=== PATIENT | male | born 2000 | race Caucasian/White ===

== ENCOUNTER 2019-06-26 15:00 | Emergency (ER) | payer OTHER ==
[2019-06-26 15:07] VITALS: BP 155/82; PULSE 90; TEMP 98; BMI 27.0
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
[2019-06-26] MEDS ORDERED: SILVER SULFADIAZINE 1% TOP CREAM 50 GM JAR TP SCH (22:00)
== END 2019-06-26 19:37 | disposition home or self-care (01) ==
LOC: JERFT 15:00
DX: S51.001A Unspecified open wound of right elbow, initial encounter (principal); S30.811A Abrasion of abdominal wall, initial encounter; S50.311A Abrasion of right elbow, initial encounter; V28.4XXA Motorcycle driver injured in noncollision transport accident in traffic accident, initial encounter; Y92.410 Unspecified street and highway as the place of occurrence of the external cause; Y93.89 Activity, other specified; Y99.8 Other external cause status
CPT/HCPCS: 73070-TC-RT-FY; 99281-25